=== PATIENT | male | born 1985 | race Caucasian/White ===

== ENCOUNTER 2018-03-31 10:27 | Emergency (ER) | payer BC ==
[2018-03-31 10:48] VITALS: O2SAT 100
--- NOTE | 2018-03-31 11:02 | ERPHSYRPT ---
- History of Present Illness Time Seen by Provider: 03/31/18 10:55 Source: patient, family Exam Limitations: no limitations Patient Subjective Stated Complaint: TO ER C/O LACERATION TO LEFT HAND STATES ONSET APPROX 2100 LAST NIGHT PT CUT HAND WHILE "SKINNING A DEAR" PT ARRIVES WITH WOUND SEAL IN PLACE NO ACTIVE BLEEDING Triage Nursing Assessment: SAME Physician History: The patient is a 32-year-old right-handed male with his complaining that he cut his left hand with a knife while skinning a deer that he had just harvested during the hunting season. He cut his left hand last night around 8 PM or 15 hours ago. His had foot 2 tubes of "wound seal" over the laceration last night. The bleeding had stopped. She wanted him seen today for possible suturing. He denies numbness or tingling. He is able to move his hand and fingers without problems. He does not know the date of his last tetanus vaccination. His past medical history is significant for ADHD. Timing/Duration: yesterday, hour(s) (15), sudden, improved Quality: other (laceration) Severity: mild Location: hands (left hand) Possible Causes: other (knife) Allergies/Adverse Reactions: No Known Allergies Allergy (Verified 03/31/18 10:42) Home Medications: Amphet Asp/Amphet/D-Amphet [Adderall 30 mg Tablet] 30 mg PO DAILY 03/31/18 [ History] Hx Tetanus, Diphtheria Vaccination/Date Given: No (NEEDS UPDATED) - Review of Systems Constitutional: No Fever, No Chills Eyes: No Symptoms Ears, Nose, & Throat: No Symptoms Respiratory: No Cough, No Dyspnea Cardiac: No Chest Pain, No Edema, No Syncope Abdominal/Gastrointestinal: No Abdominal Pain, No Nausea, No Vomiting, No Diarrhea Genitourinary Symptoms: No Dysuria Musculoskeletal: No Back Pain, No Neck Pain Skin: Other (laceration), No Rash Neurological: No Dizziness, No Focal Weakness, No Sensory Changes Psychological: No Symptoms Endocrine: No Symptoms Hematologic/Lymphatic: No Symptoms Immunological/Allergic: No Symptoms All Other Systems: Reviewed and Negative - Past Medical History Pertinent Past Medical History: No Neurological History: No Pertinent History Cardiac History: No Pertinent History Respiratory History: No Pertinent History Endocrine Medical History: No Pertinent History Musculoskeletal History: No Pertinent History Other Medical History: PILONIDAL CYST - Past Surgical History Past Surgical History: Yes Other Surgical History: CYST REMOVAL - Social History Smoking Status: Never smoker - Nursing Vital Signs Nursing Vital Signs: Initial Vital Signs Temperature 98.2 F 03/31/18 10:43 Pulse Rate 105 H 03/31/18 10:43 Respiratory Rate 16 03/31/18 10:43 Blood Pressure 137/83 03/31/18 10:43 O2 Sat by Pulse Oximetry 100 03/31/18 10:43 - Physical Exam General Appearance: no apparent distress, alert Eye Exam: PERRL/EOMI, eyes nml inspection Ears, Nose, Throat Exam: normal ENT inspection, pharynx normal, moist mucous membranes Neck Exam: normal inspection, non-tender, supple, full range of motion Respiratory Exam: normal breath sounds, lungs clear, No respiratory distress Cardiovascular Exam: regular rate/rhythm, normal heart sounds Gastrointestinal/Abdomen Exam: soft, mass, No tenderness Rectal Exam: not done Back Exam: normal inspection, normal range of motion, No CVA tenderness, No vertebral tenderness Extremity Exam: normal inspection, normal range of motion Neurologic Exam: alert, oriented x 3, cooperative, normal mood/affect, sensation nml, No motor deficits Skin Exam: laceration (laceration over left 2nd MCP joint is covered with very adherent "wound sealant". Saline soak unable to easily remove sealant. ) SpO2 Interpretation: normal SpO2: 100 Oxygen Delivery: Room Air - Progress Progress: unchanged Progress Note: 03/31/18 11:08 Unable to remove wound sealant easily. Wound was 15 hrs old. Unable to suture. Counseled pt/family regarding: diagnosis - Departure Time of Disposition: 11:03 Departure Disposition: Home Clinical Impression: Laceration of left hand Condition: Stable Critical Care Time: No Referrals: FREDI SNOW, [employer] [Primary Care Provider] - Additional Instructions: You have a 15 hour old wound that had already been sealed with a very adherent wound sealant. The wound sealant and the time delay did not allow us to suture the wound. The wound will heal naturally. I advise used to place a waterproof Band-Aid over the wound especially while at work. You were given a tetanus vaccination in the ER. Take Augmentin 875 one tablet 2 times a day for 10 days. Follow-up with your primary medical doctor as needed. Prescriptions: Amoxicillin/Potassium Clav [Augmentin 875-125 Tablet] 1 each PO BID #20 tablet
[2018-03-31] MEDS ORDERED: Adacel Vial IM ONE (11:10)
[2018-03-31] MEDS: Adacel Vial IM ONE (11:16)
[2018-03-31 11:20] VITALS: BP 128/72; PULSE 98
== END 2018-03-31 11:23 | disposition home or self-care (01) ==
LOC: ED 10:27
DX: S61.412A Laceration without foreign body of left hand, initial encounter (principal); W26.0XXA Contact with knife, initial encounter; Y93.89 Activity, other specified
CPT/HCPCS: 90471; 90715; 99283